=== PATIENT | male | born 1960 | race Caucasian/White ===

== ENCOUNTER 2020-06-10 07:43 | Outpatient (CLI) | payer OTHER, SELFPAY ==
--- NOTE | ~2020-06-10 | CT_ITS ---
EXAMINATION: CT abdomen pelvis wo/w con DATE: 06/10/2020 08:45 INDICATION: Urinary bladder malignancy restaging TECHNIQUE: Computed tomography (CT) of the abdomen and pelvis was performed without and subsequently with 130 cc Omnipaque 350 intravenous contrast. Automated exposure control and iterative reconstructi on technique were employed. Exam dose: 2013.54 mGy-cm total exam DLP. COMPARISON: 01/31/2017 CT abdomen pelvis FINDINGS: Right lower lobe calcified pulmonary granuloma. The lung bases are clear of infiltrate or c onsolidation. Normal heart size. No pericardial or pleural effusion. Very small sliding hiatal hernia. Calcified hepatic and splenic granulomas consistent with old granulomatous disease. The liver, gallbladder, spleen, pancreas and adrenal glands are otherwise unremarkable. No urinary tract calculus or hydroureteronephrosis. Status post cystectomy, ileostomy. No urinary tract obstruction or hydroureteronephrosis. No renal space occupying mass lesion. Normal caliber of the abdominal aorta. No intraperitoneal or retroperitoneal or pelvic mass lesion or adenopathy or ascites. Normal appendix. Mild left and minimal right colonic diverticulosis; no CT evidence of diverticulitis . No bowel obstruction, bowel wall thickening, pneumatosis or intraperitoneal free air. Small fat-containing left inguinal hernia. No suspicious osteolytic or osteoblastic lesions. IMPRESSION: Status post cystectomy and ileostomy; no recurrent malignancy or metastatic disease is e vident. Reviewed, dictated and finalized at [facility]. Reviewed, dictated and finalized at location B. R SCHOOL COUNSELOR IMPRESSION: Status post cystectomy and ileostomy; no recurrent malignancy or m etastatic disease is evident.
[2020-06-10 08:01] LABS: Basophils Absolute Auto 0.05 K/mm3 (0.00-0.10); Basophils Percent Auto 0.5 % (0.0-1.0); Eosinophils Absolute Auto 0.18 K/mm3 (0.02-0.50); Eosinophils Percent Auto 1.8 % (1.0-6.0); Hematocrit 52.2 % (40.0-54.0); Hemoglobin 16.8 g/dL (14.0-18.0); Immature Granulocyte Absolute 0.05 K/mm3 (0.00-0.00); Immature Granulocyte Percent A 0.5 % (0.0-0.0); Lymphocytes Absolute Auto 2.33 K/mm3 (1.10-4.50); Lymphocytes Percent Auto 23.4 % (18.0-42.0); Mean Corpuscular HGB Conc 32.2 g/dL (32.0-36.0); Mean Corpuscular Hemoglobin 28.2 pg (27.0-31.0); Mean Corpuscular Volume 87.6 fL (78.0-102.0); Mean Platelet Volume 9.5 fl (8.7-11.0); Monocytes Absolute Auto 0.76 K/mm3 (0.10-0.90); Monocytes Percent Auto 7.6 % (2.0-11.0); Neutrophils Absolute Auto 6.6 K/mm3 (1.7-7.2); Neutrophils Percent Auto 66.2 % (50.0-70.0); Platelet Count Result 282 K/mm3 (150-420); Red Blood Count 5.96 M/mm3 (4.70-6.10); Red Cell Distribution Width 13.9 % (11.6-14.4)
[2020-06-10 08:06] LABS: Estimated Glomerular Filt Rate 59
== END 2020-06-10 07:44 | disposition home or self-care (01) ==
PROVIDERS: Visit Provider Urology
DX: C67.2 Malignant neoplasm of lateral wall of bladder (principal)
CPT/HCPCS: 36415; 72133; 74178; 82565; 85025; Q9965; Q9967

== ENCOUNTER 2020-09-10 17:44 | Outpatient (CLI) | payer OTHER, SELFPAY ==
--- NOTE | ~2020-09-10 | XR_ITS ---
EXAMINATION: XR lumbar spine 2-3V DATE: 09/10/2020 18:00 INDICATION: Low back pain TECHNIQUE: Anteroposterior and lateral views of the lumbar spine, and cone-down lateral view of the l umbosacral junction were obtained. COMPARISON: CT, 06/10/2020 FINDINGS: Bone alignment is normal. There is no fracture. There is mild loss of intervertebral disc s pace height at L4-5. Severe facet osteoarthritis is present at L5-S1. The bowel gas pattern is normal . IMPRESSION: 1. Mild lumbar spondylosis with severe facet osteoarthritis at L5-S1. Reviewed, dictated and finalized at location A.
== END 2020-09-10 17:45 | disposition home or self-care (01) ==
LOC: CHSIMG 17:45
PROVIDERS: PCP Family Medicine; Visit Provider Family Medicine
DX: M54.42 Lumbago with sciatica, left side (principal)
CPT/HCPCS: 72100

== ENCOUNTER 2020-09-16 09:44 | Outpatient (CLI) | payer OTHER, SELFPAY ==
--- NOTE | ~2020-09-16 | CT_ITS ---
EXAMINATION: CT lung screening DATE: 09/16/2020 10:09 INDICATION: Personal history of tobacco dependence, current smoker with 40 pack year history TECHNIQUE: Computed tomography (CT) of the chest was performed without intravenous contrast. The dose -length product (DLP) was 215.16 mGy-cm. Automated exposure control and iterative reconstruction tech [employer] were employed. COMPARISON: 02/01/2019 FINDINGS: There is mild emphysema. Calcified pulmonary nodules and calcified right hilar and mediasti nal lymph nodes are consistent with old granulomatous disease. No new pulmonary nodules are identifie d. There are a few flat and triangular fissural lymph nodes which are stable. The lungs are free of a cute opacities. There is no pleural effusion or pneumothorax. No pathologically enlarged thoracic lym ph nodes are identified. The heart size is normal. IMPRESSION: 1. Lung-RADS category 1: Negative. Continue annual screening with noncontrast low-dose chest CT in 12 months. Reviewed, dictated and finalized at location B. IMPRESSION: 1. Lung-RADS category 1: Negative. Continue annual screening with noncontrast l ow-dose chest CT in 12 months.
--- NOTE | ~2020-09-16 | MR_ITS ---
EXAMINATION: MR lumbar spine wo con DATE: 09/16/2020 10:42 INDICATION: Lumbar radiculopathy. Low back pain. TECHNIQUE: Magnetic resonance imaging (MRI) of the lumbar spine was performed without intravenous con trast. Sequences included sagittal T2-weighted FSE, sagittal T2-weighted FS FSE, sagittal T1-weighted FSE, and axial T2-weighted FSE. COMPARISON: Lumbar spine radiographs 09/10/2020 FINDINGS: There is 4 degrees dextrocurvature of lumbar spine. Vertebral body heights are normal. Ther e is mildly decreased disc height at L1-L2 and L3-L4. The distal spinal cord signal intensity is norm al. The conus medullaris is at L1-L2. The following disc levels are specifically discussed: L1-L2: There is a right foraminal protrusion. There is mild bilateral facet joint osteoarthritis. The re is mild right neural foraminal stenosis. There is no central canal stenosis. L2-L3: The disc is mildly bulging. There is moderate right and mild left facet joint osteoarthritis. There is mild bilateral neural foraminal stenosis. There is no central canal stenosis. L3-L4: The disc is bulging. There is mild bilateral facet joint osteoarthritis. There is mild bilater al neural foraminal stenosis. There is no central canal stenosis. L4-L5: The disc is bulging. There is severe bilateral facet joint osteoarthritis. There is mild bilat eral neural foraminal stenosis. There is mild central canal stenosis. L5-S1: The disc is bulging. There is severe bilateral facet joint osteoarthritis. There is mild bilat eral neural foraminal stenosis. There is mild central canal stenosis. IMPRESSION: 1. Mild lumbar spondylosis. Reviewed, dictated and finalized at location A. IMPRESSION: 1. Mild lumbar spondylosis.
== END 2020-09-16 09:45 | disposition home or self-care (01) ==
PROVIDERS: PCP Family Medicine; Visit Provider Family Medicine
DX: M54.5 Low back pain (principal); M54.16 Radiculopathy, lumbar region; Z85.51 Personal history of malignant neoplasm of bladder; Z12.2 Encounter for screening for malignant neoplasm of respiratory organs; Z87.891 Personal history of nicotine dependence
CPT/HCPCS: 71271; 72148

== ENCOUNTER 2020-09-28 13:52 | Outpatient (RCR) | payer OTHER, SELFPAY ==
--- NOTE | 2020-09-28 14:46 | PTOPEVAL ---
Thank you for referring Hayder Nava to [facility].? The patient is scheduled to be seen for therapy? __2__x/week for 8 visits. Please review, sign, date and return this plan of care LITTLE. I agree with and certify that the following plan of care is medically necessary. Referring Physician Date Admitting Provider: Attending Provider: Ramesh Singleton MD Referring Provider: *PT Outpatient Evaluation Start: 09/28/20 14:03 Freq: Status: Active Protocol: Document 09/28/20 14:03 LORIE (Rec: 09/28/20 14:44 LORIE [email or web address]) Therapy Assessment Status Assessment Status Assessment Status Evaluation Evaluation Information Problem Diagnosis low back pain Onset 07/06/20 Subjective Information Pt. reports that he developed Query Text:As Reported By Patient/ mild pain in [facility] that has Family been worsening. He reports that initial pain was in the right low back and all the way down to the right foot. He reports that pain into the leg is all day everyday. He reports that he is taking ibuprofen and tylenol daily. He reports that that medication does help to reduce pain. Pt. reports that he is currently retired. 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 He states that he did do alot of sitting with his prior job. He states that he does walk daily for exercise. He states that his goal for therapy is to decrease his pain. Prior Level of Function Activity Level (Last 3 Months) Occupation unemployed Hand Dominance Right Activity of Daily Living Ability Independent Indoor/Home Mobility Independent Community Mobility Independent Stairs Ability Independent Functional Cognition (Planning, Shopping Independent , Taking Medications) Cooking Yes Cleaning Yes Laundry Yes Shopping Yes Driving Yes Pain Assessment Timing of Pain Assessment Timing of Pain Assessment Pre-Treatment Pain Scale Pain Scale Used Numeric (1 - 10) Self Report Pain Assessment
== END 2020-10-15 18:32 | disposition home or self-care (01) ==
LOC: CHSPT 13:52
PROVIDERS: PCP Family Medicine; Visit Provider Family Medicine
DX: M54.42 Lumbago with sciatica, left side (principal)
CPT/HCPCS: 97014; 97110; 97140; 97161; 97530; G0283

== ENCOUNTER 2020-10-05 15:14 | Outpatient (CLI) | payer OTHER, SELFPAY ==
--- NOTE | ~2020-10-05 | XR_ITS ---
EXAMINATION: XR hip RT min 2V DATE: 10/05/2020 15:35 INDICATION: Right hip pain. TECHNIQUE: 2 views of right hip were obtained. COMPARISON: None. FINDINGS: Bone alignment is normal. No fracture. There is mild right hip osteoarthritis. IMPRESSION: 1. Mild right hip osteoarthritis. Reviewed, dictated and finalized at location A.
== END 2020-10-05 15:15 | disposition home or self-care (01) ==
LOC: CHSIMG 15:16
PROVIDERS: PCP Family Medicine; Visit Provider Family Medicine
DX: M25.551 Pain in right hip (principal); M16.11 Unilateral primary osteoarthritis, right hip
CPT/HCPCS: 73502

== ENCOUNTER 2020-11-24 10:18 | Outpatient (CLI) | payer OTHER, SELFPAY ==
--- NOTE | ~2020-11-24 | CT_ITS ---
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 The dose-length product (DLP) was 1095.46 mGy-cm. Automated exposure control and iterative reconstruction technique were employed. COMPARISON: 06/10/2020 FINDINGS: CHEST CT: The lungs are free of acute opacities. There is no pleural effusion or pneumothorax. Calcified pulmon jaxson nodules and calcified hilar lymph nodes are consistent with old granulomatous disease. No patholo gically enlarged thoracic lymph nodes are identified. The heart size is normal. ABDOMEN/PELVIS CT: The liver, pancreas, gallbladder, and adrenal glands are normal. Punctate calcifications in an otherw ise normal spleen likely represent healed granulomatous disease. The kidneys are unremarkable. There are changes of cystectomy with ileal conduit formation. There is a 6.9 x 3.8 cm soft tissue mass of t he right pelvis which invades into the right acetabulum. There is also a new lytic lesion involving t he lateral aspect of the right iliac wing. There are no dilated loops of bowel. The appendix is yuko l. There is mild lumbar spondylosis. IMPRESSION: 1. Soft tissue mass of the right pelvis invading the right acetabulum, consistent with recurrent dise ase. 2. Lytic lesion in the lateral aspect of the right iliac wing, consistent with metastatic disease. Reviewed, dictated and finalized at location A. IMPRESSION: 1. Soft tissue mass of the right pelvis invading the right acetabulum, consiste nt with recurrent disease. 2. Lytic lesion in the lateral aspect of the right iliac wing, consistent with metastatic disease.
[2020-11-24 10:43] LABS: Estimated Glomerular Filt Rate > 60
== END 2020-11-24 10:19 | disposition home or self-care (01) ==
LOC: CHSIMG 10:19
PROVIDERS: PCP Family Medicine; Visit Provider Urology
DX: C67.2 Malignant neoplasm of lateral wall of bladder (principal)
CPT/HCPCS: 71260; 74177; Q9967

== ENCOUNTER 2021-03-30 14:30 | Outpatient (CLI) | payer OTHER, SELFPAY ==
--- NOTE | ~2021-03-30 | XR_ITS ---
XR knee RT 2V 03/30/2021 15:00 INDICATION: Right knee pain PROCEDURE: 2 views right knee COMPARISON: No prior studies for comparison. FINDINGS: Fracture, dislocation or subluxation is not identified. No significant joint effusion. The soft tissues appear within normal limits. No foreign bodies are identified. IMPRESSION: 1: NO ACUTE BONE OR JOINT ABNORMALITY IDENTIFIED. Reviewed, dictated and finalized at location A.
== END 2021-03-30 14:31 | disposition home or self-care (01) ==
LOC: CHSIMG 14:31
PROVIDERS: PCP Family Medicine; Visit Provider Internal Medicine Medical Oncology
DX: M25.561 Pain in right knee (principal)
CPT/HCPCS: 73560

== ENCOUNTER 2021-04-01 14:59 | Outpatient (CLI) | payer OTHER, SELFPAY ==
--- NOTE | ~2021-04-01 | US_ITS ---
EXAMINATION: US venous doppler LE EXAM DATE: 04/01/2021 15:53 INDICATION: Right lower extremity pain. TECHNIQUE: Multiple grayscale, color flow and Doppler images of the right lower extremity deep venous system obtained and reviewed. There is no prior study for comparison. FINDINGS: RIGHT SIDE Common femoral: -------- Normal. Profunda femoral: -------Thrombosed. Femoral: Thrombosed. Popliteal: Thrombosed. Posterior tibial: ---------Thrombosed. Peroneal: Thrombosed. Gastrocnemius: Thrombosed. Soleus: Thrombosed. Greater saphenous: ----- Normal. Lesser saphenous: ------ Not visualized. IMPRESSION: Positive for extensive right lower extremity DVT. Reviewed, dictated and finalized at location B.
== END 2021-04-01 15:00 | disposition home or self-care (01) ==
LOC: CHSIMG 15:00
PROVIDERS: PCP Family Medicine; Visit Provider Internal Medicine Medical Oncology
DX: M79.604 Pain in right leg (principal); M79.89 Other specified soft tissue disorders; R10.31 Right lower quadrant pain
CPT/HCPCS: 93971

== ENCOUNTER 2021-04-06 14:28 | Outpatient (CLI) | payer OTHER, SELFPAY ==
--- NOTE | ~2021-04-06 | CT_ITS ---
EXAMINATION: CT abdomen pelvis w con DATE: 04/06/2021 15:28 INDICATION: Right lower abdominal pain, right hip pain. History of urinary bladder cancer TECHNIQUE: Computed tomography (CT) of the abdomen and pelvis was performed with 100 cc Omnipaque 350 intravenous contrast. Automated exposure control and iterative reconstruction technique were employe d. Exam dose: 868.41 mGy-cm total exam DLP. COMPARISON: 11/24/2020 CT chest abdomen pelvis FINDINGS: There are multiple right lower lobe calcified pulmonary granulomas and calcified right grea ter fissure nodes. There are multiple calcified hepatic and splenic granulomas. Findings are consiste nt with old granulomatous disease. The included lower lung zones are clear of infiltrate or consolidation or pulmonary mass lesion. Normal heart size. No pericardial or pleural effusion. Bilateral fat-containing foramen of Bochdalek hernias. There is nonspecific soft tissue thickening of the distal esophagus which may be due to to esophagiti s. The liver, gallbladder, bile ducts, pancreas, pancreatic duct and spleen as well as adrenal glands ar e unremarkable. No renal mass lesion or urinary tract calculus or hydronephrosis is evident. Status post cystectomy and ileostomy. There is atherosclerotic calcification but no aneurysm of the abdominal aorta or iliac arteries. No i ntraperitoneal or retroperitoneal or pelvic mass lesion or adenopathy or ascites is detected. Small fat-containing left inguinal hernia. Normal appendix. There are some areas of soft tissue thickening of the sigmoid colon; sigmoid colon cancer is not excl uded. If the patient has not had recent colon evaluation by barium enema or colonoscopy, such colon w orkup would be recommended. There is a prominent amount of fecal material in the sigmoid colon and moderately prominent amount of fecal material in the remainder of the colon. No bowel obstruction is evident. No intraperitoneal fr ee air. There is interval extensive increased lytic change of the right iliac crest and extensive new right a cetabular, right pubic as well as posterior left iliac lytic change. IMPRESSION: Status post cystectomy and ileostomy Extensive pelvic bone destruction, substantially increased since 06/10/2020 No abdominal or pelvic abnormal mass lesion or lymphadenopathy is noted. No hydroureteronephrosis. Reviewed, dictated and finalized at Location [facility]. Reviewed, dictated and finalized at location A. IMPRESSION: Status post cystectomy and ileostomy Extensive pelvic bone destruction, substantially increased since 06/10/2020 No abdominal or pelvic abnormal mass lesion or lymphadenopathy is noted. No hyd roureteronephrosis.
[2021-04-06 14:51] LABS: Estimated Glomerular Filt Rate 44
== END 2021-04-06 14:29 | disposition home or self-care (01) ==
PROVIDERS: PCP Family Medicine; Visit Provider Internal Medicine Medical Oncology
DX: C67.2 Malignant neoplasm of lateral wall of bladder (principal); C79.51 Secondary malignant neoplasm of bone; M79.604 Pain in right leg; R10.31 Right lower quadrant pain
CPT/HCPCS: 74177; Q9967

== ENCOUNTER 2021-06-10 10:08 | Outpatient (CLI) | payer OTHER, SELFPAY ==
--- NOTE | ~2021-06-10 | CT_ITS ---
EXAMINATION: CT chest abdomen pelvis w con EXAM DATE: 06/10/2021 10:56 INDICATION: Malignant neoplasm lateral wall of urinary bladder. TECHNIQUE: Spiral CT of the chest, abdomen and pelvis was performed following intravenous injection o f 100 mL Omnipaque 350. Axial, coronal and sagittal images chest, abdomen and pelvis were reviewed. Coronal maximum intensity pixel images of chest reviewed. The dose-length product (DLP) for this ex amination was 1122.58 mGy-cm. The exposure was tailored according to patient size (auto mA exposure control), and iterative reconstruction (ASIR) was used as additional dose reduction technique. Compar yolette is made to prior examination from 04/06/2021. FINDINGS: CHEST: There are right lower lobe calcified granulomas. No suspicious pulmonary nodules. There are no pleural or pericardial effusions. Tracheobronchial tree is patent. There is no mediastinal, hi lar or axillary lymphadenopathy. There is no pneumothorax. Heart normal in size. No evidence of coronary arterial calcification. ABDOMEN PELVIS: The liver, spleen, adrenal glands and pancreas are unremarkable. Gallbladder is unre markable. No biliary obstruction. Portal and splenic veins are patent. Kidneys enhance symmetrical ly. There is no hydronephrosis. Prostate and bladder resection with ileal conduit. There is no re troperitoneal or pelvic lymphadenopathy. The appendix is normal. The stomach and small bowel are unremarkable. There is expected amount of c olonic stool. No free intraperitoneal gas. Right pubis, acetabular, left iliac mixed osteoblastic osteolytic disease does not appear significantly changed. IMPRESSION: 1. Stable appearing pelvic osseous metastatic disease. 2. Surgical changes from prostatectomy, cystectomy, ileal conduit. 3. Right lung granulomata. Reviewed, dictated and finalized at location A. AL CARETAKER
[2021-06-10 10:36] LABS: Estimated Glomerular Filt Rate 56
== END 2021-06-10 10:09 | disposition home or self-care (01) ==
LOC: CHSIMG 10:10
PROVIDERS: PCP Family Medicine
DX: C67.2 Malignant neoplasm of lateral wall of bladder (principal); C79.51 Secondary malignant neoplasm of bone
CPT/HCPCS: 71260; 74177; Q9967

== ENCOUNTER 2021-08-10 12:12 | Outpatient (CLI) | payer OTHER, SELFPAY ==
--- NOTE | ~2021-08-10 | US_ITS ---
EXAMINATION: US venous doppler LE RT DATE: 08/10/2021 12:32 INDICATION: Right lower limb deep vein thrombosis. TECHNIQUE: Grayscale ultrasound images without and with compression and Doppler ultrasound images of the right lower extremity veins were obtained. COMPARISON: Ultrasound 03/24/2021 FINDINGS: The visualized portions of right common femoral vein, popliteal vein, peroneal veins, posterior tibia l veins, and greater saphenous vein outflow are patent. There is thrombus in right profunda femoral v ein and femoral vein. IMPRESSION: 1. Deep vein thrombosis involving right profunda femoral vein and femoral vein with improvement in d istribution from 04/01/2021. Reviewed, dictated and finalized at location A. R NURSE IMPRESSION: 1. Deep vein thrombosis involving right profunda femoral vein and femoral vein with improvement in distribution from 04/01/2021.
== END 2021-08-10 12:13 | disposition home or self-care (01) ==
LOC: CHSIMG 12:13
PROVIDERS: PCP Family Medicine; Visit Provider Internal Medicine Medical Oncology
DX: I82.401 Acute embolism and thrombosis of unspecified deep veins of right lower extremity (principal)
CPT/HCPCS: 93971

== ENCOUNTER 2021-09-07 13:14 | Outpatient (CLI) | payer OTHER, SELFPAY ==
[2021-09-07 13:37] LABS: Estimated Glomerular Filt Rate 55
== END 2021-09-07 13:15 | disposition home or self-care (01) ==
LOC: CHSLAB 13:18
PROVIDERS: PCP Family Medicine
DX: C67.2 Malignant neoplasm of lateral wall of bladder (principal); C79.51 Secondary malignant neoplasm of bone
CPT/HCPCS: 99199

== ENCOUNTER 2021-09-08 09:09 | Outpatient (CLI) | payer OTHER, SELFPAY ==
--- NOTE | ~2021-09-08 | CT_ITS ---
EXAMINATION: CT chest abdomen pelvis w con EXAM DATE: 09/08/2021 09:39 INDICATION: Malignant neoplasm of lateral wall of bladder F/U. TECHNIQUE: Spiral CT of the chest, abdomen and pelvis was performed following intravenous injection o f 100 mL Omnipaque 350. Axial, coronal and sagittal images chest, abdomen and pelvis were reviewed. Coronal maximum intensity pixel images of chest reviewed. The dose-length product (DLP) for this ex amination was 1061.17 mGy-cm. The exposure was tailored according to patient size (auto mA exposure control), and iterative reconstruction (ASIR) was used as additional dose reduction technique. Compar yolette is made to prior examination from 06/10/2021. FINDINGS: CHEST: There are some scattered right lung parenchymal calcifications, granulomas. There is mild emp hysema and hyperinflation. No suspicious pulmonary nodules. There are no pleural or pericardial effu sions. Tracheobronchial tree is patent. There is no mediastinal, hilar or axillary lymphadenopath y. There is no pneumothorax. Heart normal in size. No evidence of coronary arterial calcificati on. ABDOMEN PELVIS: Prostate and bladder have been resected with ileal conduit again noted. The liver, s pleen, adrenal glands and pancreas are unremarkable. Gallbladder is unremarkable. No biliary obstru ction. Portal and splenic veins are patent. Kidneys enhance symmetrically. There is no hydronephro sis. There is no retroperitoneal or pelvic lymphadenopathy. There is mild scattered arteriosc lerotic disease. Small left inguinal fat-containing hernia. Possible right inguinal hernia repair. The appendix is normal. There is mild sigmoid colonic diverticulosis. There is no adjacent inflammat ory change to suggest diverticulitis. The stomach and small bowel are unremarkable. There is expecte d amount of colonic stool. No free intraperitoneal gas. Pelvic mixed osteoblastic and osteolytic disease is stable appearance. IMPRESSION: 1. Stable appearing pelvic osseous metastases. 2. Stable postoperative changes. 3. Mild sigmoid diverticulosis. 4. Right lung granulomas. Reviewed, dictated and finalized at location A.
== END 2021-09-08 09:10 | disposition home or self-care (01) ==
LOC: CHSIMG 09:11
PROVIDERS: PCP Family Medicine; Visit Provider Internal Medicine Medical Oncology
DX: C67.2 Malignant neoplasm of lateral wall of bladder (principal); C79.51 Secondary malignant neoplasm of bone
CPT/HCPCS: 71260; 74177; Q9967

== ENCOUNTER 2021-09-09 00:51 | Day surgery (SDC) | payer OTHER, SELFPAY ==
[2021-09-01 13:03] VITALS: BMI 29.9
[2021-09-09 09:05] VITALS: BP 128/84; PULSE 90; RESP 16; TEMP 36.5; O2SAT 98
[2021-09-09] MEDS: LACTATED RINGERS 1,000 ML 150 ML IV CONT (09:15)
--- NOTE | 2021-09-09 09:57 | WPDANESEPPF ---
Anes - Initial Pre Proc Eval Procedure: Operation Date: 09/09/21 09:30 Proposed Procedures p Screening Colonoscopy - Oscar Vasquez DO Date/Time: 09/09/21 09:57 Surgeon: Oscar Vasquez DO Pre Op Diagnosis: hx of colon polyps Patient Data Age: 61 Gender: M Height: 1.85 m Weight: 102.3 kg Last Vital Signs Temp 97.7 F 09/09/21 09:05 Pulse 90 09/09/21 09:05 Resp 16 09/09/21 09:05 BP 128/84 09/09/21 09:05 Pulse Ox 98 09/09/21 09:05 Allergies Allergy/AdvReac Type Severity Reaction Status Date / Time tuna oil Allergy Severe Anaphylaxis Verified 09/09/21 09:04 Home Medications Medication Instructions Recorded Confirmed Type denosumab [Xgeva] 120 mg SUBCUT ONCE 12/30/20 09/09/21 History latanoprost 1 drp EACH EYE DAILY 12/30/20 09/09/21 History apixaban [Eliquis] 5 mg PO BID 09/01/21 09/09/21 History calcium carbonate-vitamin D3 1 tablet PO DAILY 09/01/21 09/09/21 History [Calcium 600 + D(3)] pembrolizumab [Keytruda] 200 mg IV ONCE 09/01/21 09/09/21 History Patient hx anesthesia problems: none Family hx anesthesia problems: none Results Review: All pre-operative results and documents have been reviewed as part of the pre-operative evaluation. [facility] Past Medical History Medical History (Updated 01/11/21 @ 11:26 by Nakita MckayMD) Glaucoma Family History Family History (System 11/22/19 @ 11:06 by Fiorella Hinkle) Father Hypertension Family history of malignant neoplasm of skin Other Family history of malignant neoplasm Social History Social History (System 11/22/19 @ 11:06 by Fiorella Hinkle) Smoking packs per day: 1 Smoking cigarettes per day: 20.0 Years smoked: 40 Smoking pack-years: 40.00 Smoking status: Current every day smoker Tobacco type: cigarettes Additional smoking assessment comments: cutting down to 1/2 pack Alcohol intake: current Substance use: never Substance use type: marijuana Other substance usage details: MEDICAL CARD-EDIBLES DURING CANCER TREATMENT Living arrangements: with family Spiritual care concerns: No Anes - Eval Final PreProcedure Day of Procedure 09/09/21 09:57 Patient weight: obese Heart: regular rate and rhythm Lungs: clear to auscultation Airway: Mallampati scale class II Neurological: alert and oriented Last oral intake: >/= 8 hours ASA classification: III Emergent: no Anesthetic plan: proceed Anesthesia type and monitoring: general GIVS and standard monitoring Results Review: All pre-operative results and documents have been reviewed as part of the pre-operative evaluation. Informed Consent: The patient's anesthetic plan and its attendant risks and benefits were discussed with the patient/family/POA. Questions were solicited and answers provided to the satisfaction of the patient/family/POA.
--- NOTE | 2021-09-09 11:02 | PM.IMHP ---
H&P: HPI History of Present Illness Date/Time: 09/09/21 11:02 Chief Complaint: History of colon polyps, family history of colon cancer Narrative: this is a 61-year-old man who presents for colonoscopy. His last colonoscopy was 3 years ago and 5 polyps were removed at that time. He also has a family history of colon cancer. Patient has also been undergoing treatment for bladder and prostate cancer. He has had radiation and chemotherapy and underwent cystectomy with ileal conduit. Review of Systems Review of Systems: All systems reviewed & are unremarkable except as noted in HPI and below Constitutional: Constitutional: Denies chills, Denies fever(s), Denies headache(s) and Denies weight loss Eyes: Eyes: Denies change in vision ENT: Denies dizziness, Denies headache(s), Denies neck mass and Denies throat swelling Cardiovascular: Cardiovascular: Denies chest pain, Denies lightheadedness and Denies dyspnea Respiratory: Respiratory: Denies cough, Denies dyspnea and Denies wheezing Gastrointestinal: Gastrointestinal: Denies abdominal pain, Denies change in bowel habits, Denies nausea and Denies vomiting Genitourinary: Genitourinary: Denies hematuria and Denies dysuria Musculoskeletal: Musculoskeletal: Reports as per HPI Integumentary/Breasts: Skin/Breast: Reports as per HPI Neurologic: Denies dizziness and Denies headache(s) Allergic/Immunologic: Allergic/Immunologic: Denies throat swelling and Denies wheezing PMFSH Past Medical History Medical History (Updated 09/09/21 @ 11:03 by Oscar Vasquez DO) Family history of colon cancer Glaucoma Family History Family History (System 11/22/19 @ 11:06 by Fiorella Hinkle) Father Hypertension Family history of malignant neoplasm of skin Other Family history of malignant neoplasm Social History Social History (System 11/22/19 @ 11:06 by Fiorella Hinkle) Smoking packs per day: 1 Smoking cigarettes per day: 20.0 Years smoked: 40 Smoking pack-years: 40.00 Smoking status: Current every day smoker Tobacco type: cigarettes Additional smoking assessment comments: cutting down to 1/2 pack Alcohol intake: current Substance use: never Substance use type: marijuana Other substance usage details: MEDICAL CARD-EDIBLES DURING CANCER TREATMENT Living arrangements: with family Spiritual care concerns: No Meds Home Medications and Allergies Home Medications Medication Instructions Recorded Confirmed Type denosumab [Xgeva] 120 mg SUBCUT ONCE 12/30/20 09/09/21 History latanoprost 1 drp EACH EYE DAILY 12/30/20 09/09/21 History apixaban [Eliquis] 5 mg PO BID 09/01/21 09/09/21 History calcium carbonate-vitamin D3 1 tablet PO DAILY 09/01/21 09/09/21 History [Calcium 600 + D(3)] pembrolizumab [Keytruda] 200 mg IV ONCE 09/01/21 09/09/21 History Allergies Allergy/AdvReac Type Severity Reaction Status Date / Time tuna oil Allergy Severe Anaphylaxis Verified 09/09/21 09:04 Vital Signs Vital Signs - 24 hr 09/09/21 09:05 Temperature 36.5 C Pulse Rate 90 Respiratory Rate 16 Blood Pressure 128/84 Pulse Oximetry 98 Exam Const: General: no acute distress and alert Orientation/consciousness: patient oriented x3 HENMT: Head: normocephalic and atraumatic Ears: hearing grossly normal bilaterally General nose exam: Normal nares present Mouth: Yes Normal oral and palatal mucosa present Eyes: Periorbital: periorbital findings normal Sclera: sclerae normal EOM: EOMs intact bilaterally Neck: Neck: normal visual inspection, no lymphadenopathy and trachea midline Chest: Chest palpation & inspection: normal inspection of the chest Resp: Effort & Inspection: normal respiratory effort Auscultation: clear to auscultation bilaterally Cardio: Jugular venous distension: no JVD Rate: regular rate Rhythm: regular rhythm Heart sounds: S1 normal heart sound present and S2 normal heart sound present Peripheral pulses: Lisha
[2021-09-09 11:05] VITALS: BP 120/81; PULSE 74; RESP 20; O2SAT 100
[2021-09-09 11:15] VITALS: BP 128/90; PULSE 65; RESP 15; O2SAT 100
[2021-09-09 11:25] VITALS: BP 117/86; PULSE 64; RESP 19; O2SAT 100
== END 2021-09-09 11:35 | disposition home or self-care (01) ==
PROVIDERS: PCP Family Medicine; Visit Provider Surgery
PROC: 0DJD8ZZ Inspection of Lower Intestinal Tract, Via Natural or Artificial Opening Endoscopic (ICD-10-PCS; CPT 45378; principal; 2021-09-09 09:30)
DX: Z12.11 Encounter for screening for malignant neoplasm of colon (principal); Z86.010 Personal history of colon polyps; C61 Malignant neoplasm of prostate; C67.9 Malignant neoplasm of bladder, unspecified; H40.9 Unspecified glaucoma; Z80.0 Family history of malignant neoplasm of digestive organs; F17.210 Nicotine dependence, cigarettes, uncomplicated; F12.90 Cannabis use, unspecified, uncomplicated; E66.9 Obesity, unspecified; Z68.29 Body mass index [BMI] 29.0-29.9, adult
CPT/HCPCS: 45378; J2704; J7120

== ENCOUNTER 2021-12-07 10:08 | Outpatient (CLI) | payer OTHER, SELFPAY ==
--- NOTE | ~2021-12-07 | CT_ITS ---
EXAMINATION: CT chest abdomen pelvis w con DATE: 12/07/2021 11:11 INDICATION: Malignant neoplasm of the bladder TECHNIQUE: Transaxial computed tomographic images of the chest, abdomen, and pelvis were obtained aft er the administration of 100 cc of Omnipaque 300 intravenous contrast. The dose-length product (DLP) was 1119.37 mGy-cm. Automated exposure control and iterative reconstruction technique were employed. COMPARISON: 09/08/2021, 06/10/2021, 02/01/2019 FINDINGS: CHEST CT: There is mild emphysema. Calcified pulmonary nodules and calcified right hilar lymph nodes are consis tent with old granulomatous disease. Small triangular nodules associated with the major fissures are consistent with fissural lymph nodes. The lungs are free of focal airspace opacities. No pleural effu юлия or pneumothorax. There is chronic, mild mediastinal lymphadenopathy. The heart size is normal. ABDOMEN/PELVIS CT: The liver is diffusely low in attenuation when compared with the spleen, consistent with hepatic stea tosis. Punctate calcifications in an otherwise normal spleen likely represent healed granulomatous di sease. The pancreas, gallbladder, and adrenal glands are normal. The kidneys are unremarkable. No pat hologically enlarged abdominal or pelvic lymph nodes are identified. There is no free intraperitoneal gas or evidence of bowel obstruction. There are changes of cystectomy with ileal conduit formation. Colonic diverticulosis is present without evidence of diverticulitis. There are stable osseous metast ases involving the right pubic symphysis and right iliac wing. IMPRESSION: 1. Stable osseous metastatic disease in the pelvis. Otherwise, no evidence of metastatic disease. Reviewed, dictated and finalized at location B. IMPRESSION: 1. Stable osseous metastatic disease in the pelvis. Otherwise, no evidence of m etastatic disease.
[2021-12-07 10:33] LABS: Estimated Glomerular Filt Rate 60
== END 2021-12-07 10:09 | disposition home or self-care (01) ==
LOC: CHSIMG 10:13
PROVIDERS: PCP Family Medicine; Visit Provider Internal Medicine Medical Oncology
DX: C67.2 Malignant neoplasm of lateral wall of bladder (principal); C79.51 Secondary malignant neoplasm of bone; C79.89 Secondary malignant neoplasm of other specified sites
CPT/HCPCS: 36415; 71260; 74177; 82565; Q9967

== ENCOUNTER 2021-12-30 16:35 | Outpatient (CLI) | payer OTHER, SELFPAY ==
--- NOTE | ~2021-12-30 | XR_ITS ---
XR shoulder LT min 2V 12/30/2021 16:55 Indication: Left shoulder pain with movement. History of cancer. Procedure: 4 views left shoulder Comparison: No prior studies for comparison. Findings: There is polyarticular osteoarthritis. No acute fracture or traumatic malalignment. No lyti c or blastic lesions. No focal soft tissue abnormality. Impression: 1: Polyarticular osteoarthritis of the left shoulder. Reviewed, dictated and finalized at location A. Impression: 1: Polyarticular osteoarthritis of the left shoulder.
== END 2021-12-30 16:36 | disposition home or self-care (01) ==
LOC: CHSIMG 16:37
PROVIDERS: PCP Family Medicine; Visit Provider Internal Medicine Medical Oncology
DX: C79.51 Secondary malignant neoplasm of bone (principal); R52 Pain, unspecified
CPT/HCPCS: 73030

== ENCOUNTER 2022-03-16 09:03 | Outpatient (CLI) | payer OTHER, SELFPAY ==
--- NOTE | ~2022-03-16 | CT_ITS ---
EXAMINATION: CT chest abdomen pelvis w con DATE: 03/16/2022 09:43 INDICATION: History of bladder cancer TECHNIQUE: Transaxial computed tomographic images of the chest, abdomen, and pelvis were obtained aft er the administration of 100 cc of Omnipaque 350 intravenous contrast. The dose-length product (DLP) was 852.09 mGy-cm. Automated exposure control and iterative reconstruction technique were employed. COMPARISON: 12/07/2021 FINDINGS: CHEST CT: The lungs are free of acute opacities. No pleural effusion or pneumothorax. Calcified pulmonary nodul es and calcified right hilar and mediastinal lymph nodes are consistent with old granulomatous diseas e. Fissural lymph nodes are again noted. The heart size is normal. Chronic mild mediastinal lymphaden opathy is unchanged. ABDOMEN/PELVIS CT: The liver, pancreas, gallbladder, and adrenal glands are normal. Punctate calcifications in an otherw ise normal spleen likely represent healed granulomatous disease. There is a 2 mm cyst of the right ki dney. The left kidney is unremarkable. Changes of cystectomy with ileal conduit formation are noted. No pathologically enlarged abdominal or pelvic lymph nodes are identified. There is no free intraperi toneal gas or evidence of bowel obstruction. The appendix is normal. Again noted is stable osseous me tastatic disease involving the right pubic symphysis and the right iliac wing. There is a probable le ft iliac osseous metastasis which retrospectively is not significantly changed since recent examinati ons. IMPRESSION: 1. Changes of cystectomy and ileal conduit formation with stable metastatic disease of the pelvis. Reviewed, dictated and finalized at location A. IMPRESSION: 1. Changes of cystectomy and ileal conduit formation with stable metastatic dis ease of the pelvis.
[2022-03-16 09:21] LABS: Estimated Glomerular Filt Rate > 60
== END 2022-03-16 09:04 | disposition home or self-care (01) ==
LOC: CHSIMG 09:05
PROVIDERS: PCP Family Medicine; Visit Provider Internal Medicine Medical Oncology
DX: C67.2 Malignant neoplasm of lateral wall of bladder (principal); C79.51 Secondary malignant neoplasm of bone
CPT/HCPCS: 71260; 74177; Q9967

== ENCOUNTER 2022-06-03 12:17 | Outpatient (CLI) | payer OTHER, SELFPAY ==
--- NOTE | ~2022-06-03 | CT_ITS ---
Clinical Indication: Restaging of metastatic bladder cancer CT Scan of the Chest, Abdomen, and Pelvis with Contrast: Technique: Contiguous sections were acquired throughout the chest, abdomen, and pelvis after intraven ous administration of 100 cc of Omnipaque 350. Dose reduction technique was used on this scan by tristan randolphing automated exposure control and iterative reconstruction technique. The dose-length product (DL P) was 854.66 mGy-cm. COMPARISON: 03/16/2022 Findings: There is no evidence of any significant mediastinal, hilar or axillary lymphadenopathy. The mediastin al soft tissues and vascular structures appear normal. There is no evidence of pleural or pericardial effusion. The lungs are clear, aside from calcified right lower lobe granulomas. The liver, spleen, pancreas, gallbladder, adrenals and kidneys are within normal limits. No evidence of aortic aneurysm. No lymphadenopathy. No bowel obstruction or bowel wall thickening. There is no evidence to suggest acute appendicitis. Patient is status post cystectomy. Ileal conduit is present. Patient is also status post prostatectom y. No pelvic mass identified. Stable area of sclerotic change and cortical thickening in the right iliac bone. Additional stables m ixed lytic sclerotic lesion in the superior right pubic ramus. Stable ill-defined sclerotic lesion in the left iliac bone near the SI joint. Impression: No significant change from prior exam. Status post cystectomy with ileal conduit. Stable osseous lesions in the pelvis, which could reflect metastatic disease. Reviewed, dictated and finalized at [facility]. [employer] Impression: No significant change from prior exam. Status post cystectomy with ileal conduit. Stable osseous lesions in the pelvis, which could reflect metastatic disease.
[2022-06-03 12:35] LABS: Estimated Glomerular Filt Rate 59
== END 2022-06-03 12:18 | disposition home or self-care (01) ==
PROVIDERS: PCP Family Medicine
DX: C67.2 Malignant neoplasm of lateral wall of bladder (principal); C79.51 Secondary malignant neoplasm of bone; Z90.49 Acquired absence of other specified parts of digestive tract
CPT/HCPCS: 71260; 74177; Q9967

== ENCOUNTER 2022-09-06 08:16 | Outpatient (CLI) | payer MEDICARE, SELFPAY ==
--- NOTE | ~2022-09-06 | CT_ITS ---
EXAMINATION: CT chest abdomen pelvis w con DATE: 09/06/2022 09:25 INDICATION: Neoplasm of bladder wall. TECHNIQUE: Computed tomography (CT) of the chest, abdomen, and pelvis was performed with 100 mL Omnip aque 350 intravenous contrast. Automated exposure control and iterative reconstruction technique were employed. The dose-length product was 1713.01 mGy-cm. COMPARISON: CT chest, abdomen, and pelvis 06/03/2022, CT abdomen and pelvis 04/06/21 FINDINGS: CHEST CT: There is mild emphysema. Calcified right lung nodules and calcified right hilar and mediastinal lymph nodes are consistent with old granulomatous disease. There is a 3 mm nodule at left major fissure, l ikely benign. No pleural effusion. The heart size is normal. No pericardial effusion. There is mild b ilateral gynecomastia. ABDOMEN/PELVIS CT: The liver, spleen, gallbladder, pancreas, adrenal glands, and left kidney are normal. There are two 1 mm stones in right kidney three 1-2 mm stones in right kidney. There is a 3 mm cyst in right kidney. There are no dilated loops of bowel. The appendix is normal. There are changes of cystectomy. There is an ileal conduit on the right. There is a left inguinal hernia containing fat. There are no pathol ogically enlarged lymph nodes. There is no free intraperitoneal fluid. There is a mixed lytic and scl erotic lesion in right parasymphyseal pubis. There is a mixed lytic and sclerotic pattern involving t he right acetabulum. There is a sclerotic lesion in posterior left ilium. IMPRESSION: 1. Stable pelvic bone lesions, consistent with metastatic disease. Reviewed, dictated and finalized at location A.
[2022-09-06 08:53] LABS: Estimated Glomerular Filt Rate 57
== END 2022-09-06 08:17 | disposition home or self-care (01) ==
LOC: CHSIMG 08:19
PROVIDERS: PCP Family Medicine; Visit Provider Nurse Practitioner Family
DX: C67.2 Malignant neoplasm of lateral wall of bladder (principal); C79.51 Secondary malignant neoplasm of bone; M89.9 Disorder of bone, unspecified
CPT/HCPCS: 71260; 74177; Q9967

== ENCOUNTER 2022-12-26 12:14 | Outpatient (CLI) | payer MEDICARE, SELFPAY ==
--- NOTE | ~2022-12-26 | CT_ITS ---
Clinical Indication: Urinary bladder carcinoma CT Scan of the Chest, Abdomen, and Pelvis with Contrast: Technique: Contiguous sections were acquired throughout the chest, abdomen, and pelvis after intraven ous administration of 100 cc of Omnipaque 350. Dose reduction technique was used on this scan by uti tomasaing automated exposure control and iterative reconstruction technique. The dose-length product (DL P) was 1662.06 mGy-cm. COMPARISON: 09/06/2022 Findings: There is no evidence of any significant mediastinal, hilar or axillary lymphadenopathy. The mediastin al soft tissues and vascular structures appear normal. There is no evidence of pleural or pericardial effusion. The lungs are clear, aside from calcified granulomas. The liver, spleen, pancreas, gallbladder, adrenals and left kidney are within normal limits. Small no nobstructing right renal stones are present. No evidence of aortic aneurysm. No lymphadenopathy. No bowel obstruction or bowel wall thickening. There is no evidence to suggest acute appendicitis. Patient is status post cystectomy, with ileal conduit in place. No pelvic mass evident. No ascites. S table mixed lytic sclerotic lesion in the right iliac bone/right acetabular roof. Stable amorphous sc lerotic lesion in the posterior left ilium. Impression: Stable osseous lesions of the pelvis, consistent with metastatic disease, possibly treated disease. No evidence of soft tissue metastasis/neoplasm. Status post cystectomy with ileal conduit in place. Small nonobstructing right renal stones. Reviewed, dictated and finalized at location . Impression: Stable osseous lesions of the pelvis, consistent with metastatic disease, possi erich treated disease. No evidence of soft tissue metastasis/neoplasm. Status post cystectomy with ileal conduit in place. Small nonobstructing right renal stones.
[2022-12-26 12:36] LABS: Estimated Glomerular Filt Rate 53
== END 2022-12-26 12:15 | disposition home or self-care (01) ==
LOC: CHSIMG 12:16
PROVIDERS: PCP Family Medicine; Visit Provider Nurse Practitioner Family
DX: C67.2 Malignant neoplasm of lateral wall of bladder (principal); M89.9 Disorder of bone, unspecified; Z90.49 Acquired absence of other specified parts of digestive tract; N20.0 Calculus of kidney
CPT/HCPCS: 71260; 74177; Q9967

== ENCOUNTER 2023-04-05 10:23 | Outpatient (CLI) | payer MEDICARE, SELFPAY ==
--- NOTE | ~2023-04-05 | CT_ITS ---
EXAMINATION: CT chest abdomen pelvis w con DATE: 04/05/2023 11:36 INDICATION: Malignant neoplasm of the lateral wall of the bladder TECHNIQUE: Computed tomography (CT) of the chest, abdomen, and pelvis was performed with 100 mL Omnip aque-350 intravenous contrast. Automated exposure control and iterative reconstruction technique were employed. The dose-length product was 1411.90 mGy-cm. COMPARISON: None FINDINGS: CHEST CT: Mild emphysema. Several calcified right lower lobe nodules along with calcified right hilar lymph nod es consistent with old granulomatous disease. No other suspicious noncalcified pulmonary nodules, pne umonia, pulmonary edema or pleural effusion. Heart size is normal. No pericardial effusion. Thoracic aorta is normal in caliber with no dissection. No pathologically enlarged thoracic lymphadenopathy. S mall sliding-type hiatal hernia. ABDOMEN/PELVIS CT: Additional small scattered calcified nodules in the liver and spleen consistent with old granulomatou s disease. Gallbladder, pancreas, bilateral adrenal glands and left kidney are normal. There are 4 no nobstructing stones at the lower pole of the right kidney, the largest measuring up to 3-4 mm. Postop erative change of prior cystectomy and prostatectomy with right lower quadrant ileal conduit formatio n. Anastomotic suture line at the conduit harvest site along a segment of small bowel in the anterior pelvis. No bowel obstruction. Normal appendix. There are few scattered colonic diverticula without a djacent inflammation presenting to suggest diverticulitis. Small fat-containing left inguinal hernia. No pathologically enlarged abdominal or pelvic lymphadenopathy. Stable appearance of regions of mixe d osteolysis and secondary sclerosis in the pelvis centered in the right supra-acetabular region, at the right pubic body and left posterior iliac spine consistent with treated metastatic disease. IMPRESSION: 1. Status post cystectomy and prostatectomy with right lower quadrant ileal conduit formation consist ent with treatment for reported bladder cancer. 2. Stable appearance of likely treated pelvic osseous metastatic disease. No new bone lesions or othe r evident soft tissue metastatic disease. 3. Nonobstructing right nephrolithiasis. 4. Fat-containing left inguinal hernia. 5. Mild emphysema with calcified right lower lobe nodules and calcified right hilar lymph nodes consi stent with old granulomatous disease. Reviewed, dictated and finalized at location A. IMPRESSION: 1. Status post cystectomy and prostatectomy with right lower quadrant ileal con duit formation consistent with treatment for reported bladder cancer. 2. Stable appearance of likely treated pelvic osseous metastatic disease. No ne w bone lesions or other evident soft tissue metastatic disease. 3. Nonobstructing right nephrolithiasis. 4. Fat-containing left inguinal hernia. 5. Mild emphysema with calcified right lower lobe nodules and calcified right h ilar lymph nodes consistent with old granulomatous disease.
[2023-04-05 10:58] LABS: Estimated Glomerular Filt Rate 55
== END 2023-04-05 10:24 | disposition home or self-care (01) ==
LOC: CHSIMG 10:24
PROVIDERS: PCP Family Medicine; Visit Provider Internal Medicine Medical Oncology
DX: C67.2 Malignant neoplasm of lateral wall of bladder (principal); Z98.890 Other specified postprocedural states; M89.9 Disorder of bone, unspecified; N20.0 Calculus of kidney; K40.90 Unilateral inguinal hernia, without obstruction or gangrene, not specified as recurrent; J43.9 Emphysema, unspecified
CPT/HCPCS: 71260; 74177; Q9967

== ENCOUNTER 2023-08-15 08:28 | Outpatient (CLI) | payer MEDICARE, SELFPAY ==
--- NOTE | ~2023-08-15 | US_ITS ---
EXAMINATION: US venous doppler LE RT DATE: 08/15/2023 09:12 INDICATION: Right lower limb pain TECHNIQUE: Grayscale ultrasound images without and with compression and Doppler ultrasound images of the right lower extremity veins were obtained. COMPARISON: None. FINDINGS: The visualized portions of right common femoral vein, profunda (deep) femoral vein, femoral vein, pop liteal vein, peroneal trunk, posterior tibial veins, peroneal veins, gastrocnemius vein and greater s aphenous vein outflow are patent. Instantly noted is reflux of at least 3.5 seconds in duration at th e right popliteal vein. IMPRESSION: 1. No deep venous thrombosis in the right lower limb. 2. Reflux of at least 3.5 seconds duration in the right popliteal vein. Reviewed, dictated and finalized at location L.
--- NOTE | ~2023-08-15 | CT_ITS ---
EXAMINATION: CT chest abdomen pelvis w con DATE: 08/15/2023 09:25 INDICATION: Bladder cancer with pelvic bone metastases. TECHNIQUE: Computed tomography (CT) of the chest, abdomen, and pelvis was performed with 100 mL Omnip aque 350 intravenous contrast. Automated exposure control and iterative reconstruction technique were employed. The dose-length product was 1215.74 mGy-cm. COMPARISON: CT chest, abdomen, and pelvis 04/05/2023 FINDINGS: CHEST CT: There is mild emphysema. Calcified pulmonary nodules and calcified right hilar and mediastinal lymph nodes are consistent with old granulomatous disease. No pleural effusion. The heart size is normal. N o pericardial effusion. There is a small sliding hiatal hernia. There is mild bilateral gynecomastia. ABDOMEN/PELVIS CT: Calcifications in the liver and spleen are consistent with old granulomatous disease. The gallbladder , pancreas, adrenal glands, and left kidney are normal. There is a 5 mm cyst in right kidney. There a re changes of cystectomy and prostatectomy. There is an ileal conduit in right abdomen. There are no dilated loops of bowel. The appendix is normal. There is a left inguinal hernia containing fat. Aorti c atherosclerosis is noted. There are no pathologically enlarged lymph nodes. There is no free intrap eritoneal fluid. There is a mixed lytic and sclerotic pattern in the right parasymphyseal pubis and r ight acetabulum. There is a sclerotic lesion in left ilium. IMPRESSION: 1. Stable pelvic bone lesions, consistent with metastatic disease. Reviewed, dictated and finalized at location A.
[2023-08-15 08:55] LABS: Estimated Glomerular Filt Rate 53
== END 2023-08-15 08:29 | disposition home or self-care (01) ==
LOC: CHSIMG 08:30
PROVIDERS: PCP Family Medicine; Visit Provider Internal Medicine Medical Oncology
DX: C67.2 Malignant neoplasm of lateral wall of bladder (principal); C79.51 Secondary malignant neoplasm of bone; I82.401 Acute embolism and thrombosis of unspecified deep veins of right lower extremity
CPT/HCPCS: 71260; 74177; 93971; Q9967

== ENCOUNTER 2023-11-17 10:01 | Outpatient (CLI) | payer MEDICARE, SELFPAY ==
--- NOTE | ~2023-11-17 | CT_ITS ---
Clinical Indication: Metastatic bladder cancer CT Scan of the Chest, Abdomen, and Pelvis with Contrast: Technique: Contiguous sections were acquired throughout the chest, abdomen, and pelvis after intraven ous administration of 100 cc of Omnipaque 350. Dose reduction technique was used on this scan by uti tomasaing automated exposure control and iterative reconstruction technique. The dose-length product (DL P) was 952.85 mGy-cm. Comparison: 08/15/2023 Findings: There is no evidence of any significant mediastinal, hilar or axillary lymphadenopathy. The mediastin al soft tissues appear normal. There is no evidence of pleural or pericardial effusion. The lungs are clear, aside from right lower lobe calcified granulomas. The liver, spleen, pancreas, gallbladder, adrenals and kidneys are within normal limits. No evidence of aortic aneurysm. No lymphadenopathy. No bowel obstruction or bowel wall thickening. There is no evidence to suggest acute appendicitis. Status post cystectomy with ileal conduit in place. No pelvic mass seen. No ascites. Stable sclerotic lesions in the left iliac bone and left superior pubic ramus. Additional stable ill- defined sclerotic lesion in the left iliac bone near the SI joint. Impression: Stable sclerotic osseous lesions in the pelvis, as above. No evidence of new or progressing metastatic disease. Status post cystectomy with ileal conduit. Reviewed, dictated and finalized at [facility]. Impression: Stable sclerotic osseous lesions in the pelvis, as above. No evidence of new or progressing metastatic disease. Status post cystectomy with ileal conduit.
[2023-11-17 10:25] LABS: Estimated Glomerular Filt Rate 57
== END 2023-11-17 10:02 | disposition home or self-care (01) ==
PROVIDERS: PCP Family Medicine; Visit Provider Internal Medicine Medical Oncology
DX: C67.2 Malignant neoplasm of lateral wall of bladder (principal); C79.51 Secondary malignant neoplasm of bone; M89.9 Disorder of bone, unspecified; Z90.49 Acquired absence of other specified parts of digestive tract
CPT/HCPCS: 71260; 74177; Q9967